=== PATIENT | male | born 1985 ===

== ENCOUNTER 2023-05-14 16:39 | Emergency (ER) | payer BC, SELFPAY ==
--- NOTE | ~2023-05-14 | CT_ITS ---
EXAMINATION: CT ANGIOGRAM HEAD CT ANGIOGRAM NECK CLINICAL INFORMATION: Left-sided hemisensory loss. COMPARISON: CT head from 05/14/2023. TECHNIQUE: Initial noncontrast framing mill operator helper imaging of the head and neck was performed. Comparison is made with noncontrast head CT from earlier today. Test bolus sequences followed by intravenous administration 70 mL of Omnipaque 350. Helical imaging was performed in the axial plane from the aortic arch to the skull vertex. Delayed postcontrast imaging of the head was also performed. The data was processed at the agricultural engineering technologist's workstation for generation of MIP sequences. Angled MIPs and volume rendered reformatted images were also generated at an offline 3D workstation. Stenoses are assessed in accordance with NASCET criteria unless otherwise indicated. This CT examination was performed using dose optimization techniques as appropriate, variously including the following: *Automated exposure control. *Adjustment of mA and/or kV according to patient size (this includes techniques or standardized protocols for targeted exams where dose is matched to indication/reason for exam; i.e. extremities or head). *Use of iterative reconstruction technique. DLP: 1638 mGy-cm FINDINGS: CT Head: There is no evidence of acute intracranial hemorrhage or edematous territorial infarction. Campoverde-white matter differentiation is preserved. There is no abnormal attenuation within the brain parenchyma. The ventricles are normal in morphology and size. No evidence for obstructive hydrocephalus. No abnormal mass effect or midline shift. No extra-axial fluid collections. No pathologic intra-axial enhancement or regional oligemia. No acute soft tissue or osseous abnormalities. The mastoid air cells and visualized paranasal sinuses are clear. CT Neck: The thyroid gland and remaining cervical soft tissues are within normal limits. Mild degenerative anterolisthesis of C3 on C4. Facet and uncovertebral joint arthropathy leads to osseous encroachment on the neural foramina from C3-C4. CT Upper Chest: The visualized lung apices and upper mediastinum are within normal limits. Neck CTA: Aortic Arch: Normal contour and caliber. Classic 3 vessel branching pattern of the aortic arch. Great Vessel Origins: No significant stenosis of the branch origins. Right Common Carotid Artery: No focal stenosis or occlusion. Cervical Right Internal Carotid Artery: Normal opacification without focal stenosis or occlusion. Left Common Carotid Artery: No focal stenosis or occlusion. Cervical Left Internal Carotid Artery: Normal opacification without focal stenosis or occlusion. Cervical Right Vertebral Artery: Co-dominant. No focal stenosis or occlusion. Cervical Left Vertebral Artery: Co-dominant. No focal stenosis or occlusion. Brain CTA: Intracranial Internal Carotid Arteries: No focal stenosis or occlusion. Right Anterior Cerebral Artery: Normal A1 segment. Normal opacification of the distal DAVID segments. Left Anterior Cerebral Artery: Normal A1 segment. Normal opacification of the distal DAVID segments. Anterior Communicating Artery: Normal. Right Middle Cerebral Artery: Normal M1 segment of the MCA without focal stenosis or occlusion. Normal arborization of the distal segments. Left Middle Cerebral Artery: Normal M1 segment of the MCA without focal stenosis or occlusion. Normal arborization of the distal segments. Right Vertebral Artery: Normal V4 segment. Normal opacification of the proximal segments of the posterior inferior cerebellar artery. Left Vertebral Artery: Normal V4 segment. Normal opacification of the proximal segments of the posterior inferior cerebellar artery. Basilar Artery: Normal without focal stenosis or occlusion. Normal appearance of the proximal superior cerebellar arteries. Right Posterior Cerebral Artery: Normal P1 segment. Normal opacification of the distal CLINICAL TECHNICIAN segments. Left Posterior Cerebral Artery: Normal P1 segment. Normal opacification of the distal CLINICAL TECHNICIAN segments. Right dominant transverse/sigmoid sinuses. Otherwise, normal opacification of the superior sagittal, straight, transverse, and sigmoid sinuses. CT/CT angio head neck IMPRESSION: 1. No evidence of acute intracranial hemorrhage or edematous territorial infarction. 2. CTA of the head and neck without proximal occlusion or flow-limiting stenosis.
--- NOTE | ~2023-05-14 | CT_ITS ---
EXAMINATION: CT HEAD WITHOUT CONTRAST CLINICAL INFORMATION: Left-sided weakness numbness COMPARISON: None available. TECHNIQUE: Contiguous axial imaging was performed from the skull base to vertex without intravenous administration of contrast. This CT examination was performed using dose optimization techniques as appropriate, variously including the following: *Automated exposure control *Adjustment of mA and/or kV according to patient size (this includes techniques or standardized protocols for targeted exams where dose is matched to indication/reason for exam; i.e. extremities or head) *Use of iterative reconstruction technique DLP: 719 mGy-cm FINDINGS: There is no evidence of acute intracranial hemorrhage or territorial infarction. No abnormal mass effect or midline shift is seen. Campoverde to white matter differentiation is well preserved. No extra-axial fluid collections are identified. The ventricles are normal in size. There is no abnormal attenuation within the brain parenchyma. The osseous structures and soft tissues are normal. The mastoid air cells and visualized portions of the paranasal sinuses are well aerated. CT/CT head/brain wo IV con IMPRESSION: No acute intracranial pathology.
[2023-05-14 16:45] VITALS: BP 161/109; PULSE 93; RESP 18; TEMP 36.6; O2SAT 98; BMI 28.4
--- NOTE | 2023-05-14 16:46 | ED_ITS ---
HPI - General Adult General Chief complaint: Neuro Symptoms/Deficit Stated complaint: Numbness left side of body Time Seen by Provider: 05/14/23 18:14 Source: patient Mode of arrival: ambulatory Limitations: no limitations History of Present Illness HPI narrative: Patient was healthy no significant past medical history woke up at 01:00 notice left side of the body numb starting from the face all the way to the leg had difficulty in walking his left knee buckled up 2 times while going upstairs been having mild headache for last few days no history of migraine no family history of multiple sclerosis patient able to ambulate without significant balance but feeling heavy on the left side Related Data Previous Rx's Medication Instructions Recorded aspirin 81 mg tablet,delayed 81 mg PO DAILY #90 tabs 05/14/23 release (Adult Low Dose Aspirin) Allergies Allergy/AdvReac Type Severity Reaction Status Date / Time No Known Allergies Allergy Verified 05/14/23 16:45 Review of Systems 2 Review of Systems: Yes all other systems are reviewed and are negative [facility] Social History Social History Alcohol intake: current Alcohol intake frequency: 0-2 drinks per day Alcohol type: beer Smoked in Last 30 Days: Yes Use of substances other than those prescribed or required for medical reasons: No Advance Directives: No Advance Directives Information Provided: No Physical Exam ED Vital Signs: Vital Signs - 24 hr 05/14/23 16:45 05/14/23 17:24 05/14/23 18:00 Temperature 97.8 F 97.8 F 98.4 F Pulse Rate 93 76 71 Respiratory Rate 18 16 16 Blood Pressure 161/109 H 136/95 H 140/93 H Pulse Oximetry 98 98 98 Oxygen Delivery Method Room Air Room Air Room Air 05/14/23 19:03 05/14/23 20:45 Temperature 98.1 F 98.2 F Pulse Rate 69 72 Respiratory Rate 17 17 Blood Pressure 145/98 H 148/94 H Pulse Oximetry 99 98 Oxygen Delivery Method Room Air Room Air BMI result Body Mass Index 28.4 Appearance: Alert. Oriented X3. No acute distress. Eyes: PERRLA, No Nystagmus ENT: Pharynx normal. Oral Mucosa moist Neck: Normal inspection. Neck supple. CVS: Normal heart rate and rhythm. Pulses normal. Respiratory: No respiratory distress. Equal air entry bilateral, no wheezing/rales/rhonchi Abdomen: Soft and nontender. Bowel sounds are present, no mass palpable, no CVA tenderness Skin: Skin warm and dry. Normal skin color. Normal skin turgor. Extremities: No lower extremity edema. No calf tenderness Neuro: Oriented X 3. No motor deficit. No sensory deficit.No cerebellar signs , cranial nerves II-XII intact NIH Stroke Scale Internal: Initial- Upon Arrival Level of Consciousness: Alert Level of Consciousness Questions: Answers both questions correctly Level of Consciousness Commands: Performs both tasks correctly Best Gaze: Normal Visual: No visual loss Facial Palsy: Normal Motor Arm (Right): No drift Motor Arm (Left): No drift Motor Leg (Right): No drift Motor Leg (Left): No drift Limb Ataxia: Absent Sensory: Normal Best Language: No aphasia Dysarthia: Normal Extinction and Inattention: No abnormality Score: 0 Course Course Course Narrative: This is an RME: Additional HPI, ROS, PE not included below will be deferred to primary provider. This is a [id number], with no known medical problems, presenting to the emergency department with complaints of numbness/tingling and left sided weakness. Pt states that this morning at 1:00AM this morning he woke up feeling numbness and tingling into the left side of his face. He states that he could not fall asleep for several hours. He states that he has felt numbness and tingling into his left arm and left leg. He states that he feels as though his left arm is a arm . He states that one point yesterday afternoon at 10:30- 11AM yesterday he had flashing in his bilateral eyes, which resolved after several minutes. Patient admits that he is a daily alcohol drinker, typically drinks 6-812 oz beers per day. No history alcohol withdrawal symptoms. Negative pronator drift, 5/5 strength in upper lower extremities. Symmetric smile. Patient is fully neurologically intact. Able to perform finger to nose test. Plan: Labs, EKG, CT head Medications Administered Discontinued Medications Generic Name Dose Route Start Last Admin Trade Name Freq PRN Reason Stop Dose Admin Aspirin 325 mg 05/14/23 19:03 05/14/23 19:19 Aspirin Enteric Coated 325 Mg Tablet.Dr SLOAN 05/14/23 19:04 325 mg ONCE ONE Administration Iohexol 100 ml 05/14/23 19:03 05/14/23 19:03 Iohexol 350 Mg/Ml 100 Ml Infus..Btl IV 05/14/23 19:04 70 ml ONCE ONE Administration Medical Decision Making Medical Decision Making [facility] Narrative: Patient with left adrienne sensory subjective numbness no objective findings of deficit CT head was negative possibility of small LM stroke axis will do CTA rule out any large vessel lesion 20:25CTA negative likely patient has TIA with discharge patient home on baby aspirin advised to follow with neurologist patient ambulating feeling much better now Differential Diagnosis Differential Diagnoses: The differential diagnosis associated with the presentation includes CVA/TIA/MS / JUANITA Lab Data [facility] Lab Attestation statement: I reviewed the patient's lab results. 05/14/23 17:10 05/14/23 17:10 Labs: Lab Results 05/14/23 Range/Units 17:10 WBC 9.8 (4.8-10.8) X10*3/uL RBC 4.38 L (4.60-5.80) X10*6/uL Hgb 15.0 (14.0-18.0) g/dl Hct 42.1 (42.0-52.0) % MCV 96.1 (80.0-98.0) fL MCH 34.2 H (27.0-33.0) pg MCHC 35.6 (31.0-36.0) g/dl RDW 13.0 (11.0-16.0) % Plt Count 221 (160-400) X10*3/uL MPV 11.9 (9.4-12.4) fL Immature Gran % (Auto) 0.5 H (0.0-0.4) % Neut % (Auto) 65.9 (45-73) % Lymph % (Auto) 25.7 (20-40) % [place] % (Auto) 6.3 (2-11) % Eos % (Auto) 1.1 (0-4) % Baso % (Auto) 0.5 (0-2) % Lymph # (Auto) 2.5 (1.2-4.9) X10*3/uL [place] # (Auto) 0.6 (0.1-1.2) X10*3/uL Eos # (Auto) 0.1 (0.0-0.4) X10*3/uL Baso # (Auto) 0.1 (0.0-0.2) X10*3/uL Abs Immat Gran (auto) 0.05 H (0.00-0.03) X10*3/uL Absolute Neuts (auto) 6.4 (2.0-8.3) x10*3/uL Absolute Nucleated RBC 0.000 (0.0-0.012) X10*3/uL Nucleated RBC % (auto) 0.0 (0.0-0.2) /100WBC Sodium 139 (135-145) mmol/L Potassium 3.5 (3.3-5.1) mmol/L Chloride 104 (96-108) mmol/L Carbon Dioxide 21 L (22-29) mmol/L Anion Gap 18 (12-20) BUN 10 (9-16) mg/dL Creatinine 0.88 (0.5-1.4) mg/dL Estim Creat Clear Calc 136.1 Estimated GFR > 60 Random Glucose 94 (60-115) mg/dL Calcium 9.7 (8.4-10.2) mg/dL Magnesium 2.1 (1.6-2.6) mg/dL Total Bilirubin 0.7 (0.0-1.0) mg/dL Direct Bilirubin 0.2 (0.0-0.5) mg/dL AST 23 (5-37) U/L ALT 28 (0-40) U/L Alkaline Phosphatase 86 (39-117) U/L Troponin I High Sens < 2.7 (<3.5-35.0) ng/L Total Protein 7.8 (6.5-8.0) g/dL Albumin 4.4 (3.5-5.0) g/dL Lipase 30 (8-78) U/L Urine Opiates Screen Not Detected (Not Detect) Urine Fentanyl Screen Not Detected (Not Detect) Ur Barbiturates Screen Not Detected (Not Detect) Ur Phencyclidine Scrn Not Detected (Not Detect) Ur Amphetamines Screen Not Detected (Not Detect) U Benzodiazepines Scrn Not Detected (Not Detect) Urine Cocaine Screen Not Detected (Not Detect) U Marijuana (THC) Screen Not Detected (Not Detect) Ethyl Alcohol 11 mg/dL Radiology Impression Discussion of test interpretation with radiology: I have reviewed the radiologist's reading. Radiologist Impression: CT/CT angio head neck IMPRESSION: 1. No evidence of acute intracranial hemorrhage or edematous territorial infarction. 2. CTA of the head and neck without proximal occlusion or flow-limiting stenosis. Discharge Plan Discharge Clinical Impression: Transient cerebral ischemia Patient Disposition: Home, Self-Care Instructions: Transient Ischemic Attack (ED) Additional Instructions: Cause of your numbness on the left side is not clear possible mini-stroke Take baby aspirin daily and follow with neurologist Prescriptions: New aspirin [Adult Low Dose Aspirin] 81 mg tablet,delayed release (DR/EC) 81 mg PO DAILY Qty: 90 0RF Referrals: Tro Paez MD [Physician] - 1 week Interventions: ED Discharge Assessment Last Done: 05/14/23 20:48 Discharge Date/Time: 05/14/23 20:57
--- NOTE | 2023-05-14 16:54 | ECG_ITS ---
Test Reason : NUMBESS/TINGLING Blood Pressure : / mmHG Vent. Rate : 083 BPM Atrial Rate : 083 BPM P-R Int : 108 ms QRS Dur : 098 ms QT Int : 380 ms P-R-T Axes : 048 048 043 degrees QTc Int : 446 ms Sinus rhythm with short IA Otherwise normal ECG No previous ECGs available Referred By: Kailyn Johansen Electronically Signed By:BERNADINE CRISOSTOMO
[2023-05-14 17:18] LABS: MANUAL DIFF FLAG NO
--- NOTE | 2023-05-14 17:18 | PC.NURSE ---
ekg performed, labs drawn, urine obtained in triage. pt currently in CT.
[2023-05-14 17:21] LABS: Basophils Absolute Auto 0.1 X10*3/uL (0.0-0.2); Basophils Percent Auto 0.5 % (0-2); Eosinophils Absolute Auto 0.1 X10*3/uL (0.0-0.4); Eosinophils Percent Auto 1.1 % (0-4); Hematocrit 42.1 % (42.0-52.0); Imm Gran Abs Auto 0.05 X10*3/uL (0.00-0.03); Imm Gran Pct Auto 0.5 % (0.0-0.4); Lymphocytes Absolute Auto 2.5 X10*3/uL (1.2-4.9); Lymphocytes Percent Auto 25.7 % (20-40); Mean Corpuscular HGB Conc 35.6 g/dl (31.0-36.0); Mean Corpuscular Hemoglobin 34.2 pg (27.0-33.0); Mean Corpuscular Volume 96.1 fL (80.0-98.0); Mean Platelet Volume 11.9 fL (9.4-12.4); Monocytes Absolute Auto 0.6 X10*3/uL (0.1-1.2); Monocytes Percent Auto 6.3 % (2-11); Neutrophils Absolute Auto 6.4 x10*3/uL (2.0-8.3); Neutrophils Percent Auto 65.9 % (45-73); Platelet Count 221 X10*3/uL (160-400); Red Blood Count 4.38 X10*6/uL (4.60-5.80); White Blood Count 9.8 X10*3/uL (4.8-10.8)
[2023-05-14 17:24] VITALS: BP 136/95; PULSE 76; RESP 16; TEMP 36.6; O2SAT 98
[2023-05-14 17:26] LABS: Amphetamine Screen Urine Not Detected (Not Detect); Barbiturates, Urine Not Detected (Not Detect); Benzodiazepines Screen Urine Not Detected (Not Detect); Cannabinoid Screen Urine Not Detected (Not Detect); Cocaine Screen Urine Not Detected (Not Detect); Fentanyl, urine Not Detected (Not Detect); Opiate Screen Urine Not Detected (Not Detect); Phencyclidine Screen Urine Not Detected (Not Detect)
[2023-05-14 17:30] LABS: Ethanol 11 mg/dL
[2023-05-14 17:34] LABS: Alanine Aminotransferase 28 U/L (0-40); Albumin Level 4.4 g/dL (3.5-5.0); Alkaline Phosphatase 86 U/L (39-117); Anion Gap 18 (12-20); Aspartate Amino Transferase 23 U/L (5-37); Bilirubin Direct 0.2 mg/dL (0.0-0.5); Bilirubin Total 0.7 mg/dL (0.0-1.0); Blood Urea Nitrogen 10 mg/dL (9-16); Calcium 9.7 mg/dL (8.4-10.2); Carbon Dioxide 21 mmol/L (22-29); Chloride 104 mmol/L (96-108); Creatinine Clr Calc Pharmacy 136.1; Estimated Glomerular Filt Rate > 60; Glucose Random 94 mg/dL (60-115); Lipase 30 U/L (8-78); Magnesium 2.1 mg/dL (1.6-2.6); Potassium 3.5 mmol/L (3.3-5.1); Sodium 139 mmol/L (135-145); Total Protein 7.8 g/dL (6.5-8.0)
[2023-05-14 17:42] LABS: Troponin-I High Sensitivity < 2.7 ng/L (<3.5-35.0)
[2023-05-14 18:00] VITALS: BP 140/93; PULSE 71; RESP 16; TEMP 36.9; O2SAT 98
--- NOTE | 2023-05-14 18:06 | PC.NURSE ---
pt a&ox3, vss, nsr on the vice president integrated. pt comes in today after having left sided weakness, left sided facial numbness/tingling that started around 0130 this morning. pt states that he feels lightheaded/dizzy/has a headache baron. pt reports no pain baron. pt denies hx of migraines and has never had this sensation before. CMS currently intact. no neuro deficits noted. bilateral equal strength in all extremities. pt resting comfortably in no apparent distress. respirations even and unlabored. call lee placed within reach.
--- NOTE | 2023-05-14 18:37 | PC.NURSE ---
provider bedside w/ pt discussing plan of care. 20gIV placed in the right AC w/o complications d/t patient's scheduled CTA. pt resting comfortably in no apparent distress. respirations even and unlabored. call lee placed within reach.
[2023-05-14 19:03] VITALS: BP 145/98; PULSE 69; RESP 17; TEMP 36.7; O2SAT 99
[2023-05-14] MEDS: iohexoL 350 MG/ML 100 ML INFUS..BTL IV (19:03)
[2023-05-14] MEDS: Aspirin Enteric Coated 325 MG TABLET.DR PO (19:19)
--- NOTE | 2023-05-14 20:42 | PC.NURSE ---
Pt ca&ox4, no signs of distress. Pt denies pain and dizziness Pt resting comfortably watching tv. plan of care ongoing.
[2023-05-14 20:45] VITALS: BP 148/94; PULSE 72; RESP 17; TEMP 36.8; O2SAT 98
== END 2023-05-14 20:57 | disposition home or self-care (01) ==
PROVIDERS: Physician Assistant Medical; Emergency Provider Internal Medicine
DX: G45.9 Transient cerebral ischemic attack, unspecified (principal); R29.700 NIHSS score 0; F10.90 Alcohol use, unspecified, uncomplicated; Y90.0 Blood alcohol level of less than 20 mg/100 ml
CPT/HCPCS: 36415; 70450; 70496; 70498; 80048; 80076; 80307; 83690; 83735; 84484; 85025; 93005; 99284; 99285; Q9967